=== PATIENT | female | born 1990 | race African-American/Black ===

== ENCOUNTER 2022-03-01 02:12 | Emergency (ER) | payer OTHER ==
[~2022-03-01] VITALS: Ht 165.1 cm; Wt 77.1 kg
[2022-03-01] MEDS ORDERED: MAGNESIUM SULFATE 2 GM in IV DEXTROSE 5% 100 ML IV ONE (02:30)
[2022-03-01] MEDS ORDERED: methylPREDNISolone SOD SUCC 125 MG/2 ML VIAL IV ONE (02:30)
[2022-03-01] MEDS ORDERED: IV NORMAL SALINE 1000 ML BAG IV ONE (02:30)
[2022-03-01] MEDS ORDERED: IPRATROPIUM BROMIDE 0.5 MG/2.5 ML NEBU NEB ONE (02:30)
[2022-03-01] MEDS ORDERED: ALBUTEROL SULFATE 2.5 MG/3 ML NEBU NEB ONE (02:30)
--- NOTE | 2022-03-01 02:30 | NUR ---
Dr. Moss at bedside for MSE.
[2022-03-01] MEDS ORDERED: ALBU8.5H8 IH (02:33)
[2022-03-01] MEDS ORDERED: MAGNESIUM SULFATE/D5W 200 ML ONE ×2 (02:41→03:44)
[2022-03-01] MEDS ORDERED: ALBUTEROL SULFATE 2.5 MG/3 ML NEBU ONE (02:42)
[2022-03-01] MEDS ORDERED: IPRATROPIUM BROMIDE 0.5 MG/2.5 ML NEBU ONE (02:42)
[2022-03-01] MEDS ORDERED: CHOLECALCIFEROL 1,000 UNIT TABLET PO SCH (02:45)
[2022-03-01 03:05] LABS: HEMATOCRIT 39.1 % (31.2-41.9); MEAN CORPUSCULAR HEMOGLOBIN 33.3 uug (24.7-32.8); MEAN CORPUSCULAR VOLUME 96.5 fL (75.5-95.3); PLATELET COUNT (AUTO) 268 K/uL (179-408)
[2022-03-01] MEDS ORDERED: methylPREDNISolone SOD SUCC 125 MG/2 ML VIAL ONE (03:07)
[2022-03-01 03:11] LABS: CREATININE 0.9 mg/dL (0.6-1.3); POTASSIUM 3.4 mmol/L (3.5-5.1)
[2022-03-01] MEDS ORDERED: FLUT12AE5 INH (03:14)
[2022-03-01] MEDS ORDERED: PRED20TA PO (03:14)
[2022-03-01] MEDS ORDERED: ALBU18HF2 INH (03:14)
[2022-03-01] MEDS ORDERED: ONDANSETRON 4 MG/2 ML VIAL ONE (03:17)
[2022-03-01] MEDS ORDERED: ONDANSETRON 4 MG/2 ML VIAL IV ONE (03:30)
[2022-03-01] MEDS ORDERED: POTASSIUM BICARBONATE/CIT AC 25 MEQ TABLET.EFF PO ONE (03:30)
[2022-03-01] MEDS ORDERED: POTASSIUM BICARBONATE/CIT AC 25 MEQ TABLET.EFF ONE (03:43)
[2022-03-01] MEDS ORDERED: CHOLECALCIFEROL 1,000 UNIT TABLET ONE (03:44)
[2022-03-01] MEDS: MAGNESIUM SULFATE/D5W 100 ML IV SCH ×2 (04:15→05:07)
--- NOTE | 2022-03-01 05:27 | NUR ---
Patient discharged to home in stable condition. Written and verbal after care instructions given. Patient verbalizes understanding of instructions. Stressed follow up or return to ER for worsening s/s. Patient out of ER with steady gait, no acute signs of distress, VSS, all belongings taken, IV site discontinued.
[2022-03-01 05:28] VITALS: BP 114/71
== END 2022-03-01 05:28 | disposition home or self-care (01) ==
LOC: ER 02:15 → EDBD 02:15 → ER 05:28
DX: J45.902 Unspecified asthma with status asthmaticus (principal); E55.9 Vitamin D deficiency, unspecified; E87.6 Hypokalemia; E83.42 Hypomagnesemia; R00.0 Tachycardia, unspecified; R94.31 Abnormal electrocardiogram [ECG] [EKG]
CPT/HCPCS: 99291; 96365; 96375; 96366; 80048; 82607; 83735; 85025; 36415; 93005; 94644; J3475 ×3; J2930; J2405; A4663; J3590